=== PATIENT | female | born 1975 | race Caucasian/White ===

== ENCOUNTER 2017-07-19 11:29 | Emergency (ER) | payer BC ==
[2017-07-19] MEDS ORDERED: SUCCINYLCHOLINE CHLORIDE 20 MG/ML 10 ML VIAL IV ONE (11:32)
[2017-07-19] MEDS ORDERED: ETOMIDATE 2 MG/ML 20 ML VIAL IV ONE (11:32)
[2017-07-19] MEDS ORDERED: SODIUM CHLORIDE 0.9% 1000ML 1,000 ML IV STA (11:38)
[2017-07-19] MEDS ORDERED: LORAZEPAM 2 MG/ML 1 ML VIAL IV STA (11:38)
[2017-07-19 11:55] LABS: HEMATOCRIT 37.2 % (37-47); HEMOGLOBIN 12.5 g/dL (12.0-16.0); MEAN CELL VOLUME 92.5 fL (80-100); MEAN CORPUSCULAR HEMOGLOBIN 31.1 pg (25-34); MEAN CORPUSCULAR HGB CONC 33.6 g/dl (32-36); MEAN PLATELET VOLUME 10.4 fL (7.4-10.4); PLATELET COUNT 354 K/uL (130-400); RED CELL DISTRIBUTION WIDTH CV 13.1 % (11.5-14.5); WHITE BLOOD COUNT 17.67 K/uL (4.8-10.8)
[2017-07-19] MEDS ORDERED: RAPID SEQUENCE INDUCTION BAG ONE (12:01)
--- NOTE | 2017-07-19 12:03 | DIAGNOSTIC IMAGING REPORT ---
CT OF THE HEAD WITHOUT CONTRAST CLINICAL HISTORY: Altered mental status. Fever. Sepsis. COMPARISON STUDY: None. CT DOSE: 537.48 mGy.cm TECHNIQUE: Helical axial images of the head were obtained without IV contrast. Automated exposure control was utilized for the study. A dose lowering technique was utilized adhering to the principles of ALARA. FINDINGS: Note is made of extensive acute subarachnoid hemorrhage. The subarachnoid hemorrhage is noted within the basilar cisterns, both sylvian fissures, left greater than right, as well as scattered foci overlying the convexities. The amount of blood is greatest within the interpeduncular cistern and left sylvian fissure. There is a small amount of intraventricular hemorrhage, most evident within the occipital horn of the right lateral ventricle. There is no evidence for hydrocephalus. Boykin-white differentiation is maintained. There is no calvarial fracture. IMPRESSION: Extensive acute subarachnoid hemorrhage and small amount of intraventricular hemorrhage. The finding are highly suggestive of a ruptured intracranial aneurysm. No aneurysm identified on this unenhanced exam but considerations include a basilar tip or left MCA aneurysm. A CTA of the head and urgent neurosurgical consultation are recommended. Findings discussed with Dr. Johnson at time of dictation. Electronically signed by: Jamal Wallace M.D. 07/19/2017 12:02 PM Dictated Date/Time: 07/19/2017 11:57 AM
[2017-07-19 12:05] LABS: INR 0.9 (0.9-1.1); PTT PATIENT 28.2 SECONDS (21.0-31.0)
[2017-07-19] MEDS ORDERED: PROPOFOL IV EMULSION 10 MG/ML 100 ML VIAL IV ONE (12:08)
[2017-07-19 12:12] LABS: BASO % 0.2 %; BASO ABS # 0.04 K/uL (0-0.2); EOS % 0.8 %; EOS ABS # 0.14 K/uL (0-0.5); LYMPH % 34.3 %; LYMPH ABS # 6.06 K/uL (1.2-3.4); MONO % 5.3 %; MONO ABS # 0.94 K/uL (0.11-0.59); NEUT % 58.8 %; NEUT ABS # 10.39 K/uL (1.4-6.5)
[2017-07-19 12:16] LABS: ALBUMIN 3.2 gm/dl (3.4-5.0); BLOOD UREA NITROGEN 11 mg/dl (7-18); CALCIUM 7.7 mg/dl (8.5-10.1); CARBON DIOXIDE 14 mmol/L (21-32); CREATININE 0.93 mg/dl (0.60-1.20); GLUCOSE 189 mg/dl (70-99); LIPASE 130 U/L (73-393); POTASSIUM 3.7 mmol/L (3.5-5.1); SODIUM 139 mmol/L (136-145)
--- NOTE | 2017-07-19 12:18 | DIAGNOSTIC IMAGING REPORT ---
CHEST ONE VIEW PORTABLE CLINICAL HISTORY: Evaluate Fever/Sepsis COMPARISON STUDY: None. FINDINGS: Tip of endotracheal tube projects 3.6 cm above the mihir. There is no pneumothorax or pleural effusion. Pulmonary vascularity is normal. Lung volumes are mildly diminished. No consolidation is identified. Cardiac size is within normal limits. IMPRESSION: 1. Tip of endotracheal tube 3.6 cm above the mihir. 2. No acute cardiopulmonary findings. Electronically signed by: Jamal Wallace M.D. 07/19/2017 12:17 PM Dictated Date/Time: 07/19/2017 12:16 PM
[2017-07-19 12:33] LABS: ALKALINE PHOSPHATASE 65 U/L (45-117); ALT/SGPT 15 U/L (12-78); AST/SGOT 16 U/L (15-37); CKMB 1.3 ng/ml (0.5-3.6); TOTAL PROTEIN 6.4 gm/dl (6.4-8.2)
[2017-07-19] MEDS ORDERED: LEVETIRACTAM 1000 MG in DEXTROSE 5% 100ML IV ONE (12:45)
[2017-07-19 13:36] VITALS: BP 137/72; PULSE 109; O2SAT 100
--- NOTE | 2017-07-19 13:53 | EMERGENCY ROOM VISIT NOTE ---
History Report prepared by Sharmin: Johnathan Taylor Under the Supervision of: Dr. Inocencio Johnson D.O. First contact with patient: 11:33 Chief Complaint: UNRESPONSIVE History of Present Illness The patient is a 40 year old female who presents to the Emergency Room by EMS for evaluation of constant altered mental status beginning shortly prior to arrival. EMS states that they were called when the patient was found unresponsive by her friend in the bathroom at [facility]. They state that she would not respond to sternal rub initially. They state that the patient suddenly became combative and confused while being assessed. EMS states that the patient was given two doses of Ativan en route. They note that her blood sugar was 135. They state that the patient has been unresponsive but moaning since receiving the Ativan. Per friend, the patient has no history of similar symptoms. She denies any known drug use. She notes that the patient was at a concert yesterday. The patients friend states that she saw the patients foot slide into her stall while both going to the bathroom, and went to investigate. She states that she found the patient slumped against the side of the stall. She states that the patient was snoring, but denies seeing any seizure-like activity. The patients friend states that the patient was complaining of diarrhea today, but otherwise had no complaints. She states that the patient was concerned she may have a hemorrhoid as well. The patient has a history of IBS and constipation. HPI limited secondary to altered mental status. Source of History: patient History Limited By: AMS Onset: Shortly prior to arrival Quality: other (altered mental status) Timing: constant Associated Symptoms: + diarrhea Note: Negative: seizure-like activity. Review of Systems ROS limited secondary to altered mental status. Past Medical & Surgical Medical Problems: (1) Constipation (2) IBS (irritable bowel syndrome) Family History No pertinent family history stated. Social History Marital Status: Housing Status: lives with family Current/Historical Medications Unable to Obtain Active Prescriptions or Reported Meds Physical Exam Vital Signs Date Time Temp Pulse Resp B/P (MAP) Pulse Ox O2 Delivery O2 Flow Rate FiO2 07/19/17 13:36 109 16 137/72 100 Mechanical Ventilator 50 07/19/17 12:21 60 07/19/17 12:21 114 16 122/79 100 Mechanical Ventilator 60 07/19/17 11:47 107 07/19/17 11:37 130 20 108/80 98 Room Air Physical Exam CONSTITUTIONAL/VITAL SIGNS: Reviewed / noted above. GENERAL: Non-toxic in appearance. INTEGUMENTARY: Warm, dry, and [place]. HEAD: Normocephalic. EYES: without scleral icterus or trauma. Pupils are dilated but reactive to light. ENT/OROPHARYNX: clear and moist. LYMPHADENOPATHY/NECK: Is supple without lymphadenopathy or meningismus. RESPIRATORY: Lungs clear and equal. CARDIOVASCULAR: Regular rate and rhythm. GI/ABDOMEN: Soft and nontender. No organomegaly or pulsatile mass. No rebound or guarding. Normal bowel sounds. EXTREMITIES: Warm and well perfused. BACK: No CVA tenderness. NEUROLOGICAL: Non-purposeful movements of the upper extremities. May withdrawal to pain. Screams at times. Negative upgoing toes with Babinski test. PSYCHIATRIC: normal affect. MUSCULOSKELETAL: Normally developed with good muscle tone. Medical Decision & Procedures ER Provider Diagnostic Interpretation: Radiology results as stated below per my review and radiologist interpretation: CT OF THE HEAD WITHOUT CONTRAST FINDINGS: Note is made of extensive acute subarachnoid hemorrhage. The subarachnoid hemorrhage is noted within the basilar cisterns, both sylvian fissures, left greater than right, as well as scattered foci overlying the convexities. The amount of blood is greatest within the interpeduncular cistern and left sylvian fissure. There is a small amount of intraventricular hemorrhage, most evident within the occipital horn of the right lateral ventricle. There is no evidence for hydrocephalus. Boykin-white differentiation is maintained. There is no calvarial fracture. IMPRESSION: Extensive acute subarachnoid hemorrhage and small amount of intraventricular hemorrhage. The finding are highly suggestive of a ruptured intracranial aneurysm. No aneurysm identified on this unenhanced exam but considerations include a basilar tip or left MCA aneurysm. A CTA of the head and urgent neurosurgical consultation are recommended. Findings discussed with Dr. Johnson at time of dictation. Electronically signed by: Jamal Wallace M.D. 07/19/2017 12:02 PM CHEST ONE VIEW PORTABLE FINDINGS: Tip of endotracheal tube projects 3.6 cm above the mihir. There is no pneumothorax or pleural effusion. Pulmonary vascularity is normal. Lung volumes are mildly diminished. No consolidation is identified. Cardiac size is within normal limits. IMPRESSION: 1. Tip of endotracheal tube 3.6 cm above the mihir. 2. No acute cardiopulmonary findings. Electronically signed by: Jamal Wallace M.D. 07/19/2017 12:17 PM Laboratory Results 07/19/17 11:45 Red Blood Count 4.02, Mean Corpuscular Volume 92.5, Mean Corpuscular Hemoglobin 31.1, Mean Corpuscular Hemoglobin Concent 33.6, Mean Platelet Volume 10.4, Neutrophils (%) (Auto) 58.8, Lymphocytes (%) (Auto) 34.3, Monocytes (%) (Auto) 5.3, Eosinophils (%) (Auto) 0.8, Basophils (%) (Auto) 0.2, Neutrophils # (Auto) 10.39, Lymphocytes # (Auto) 6.06, Monocytes # (Auto) 0.94, Eosinophils # (Auto) 0.14, Basophils # (Auto) 0.04 07/19/17 11:45 Test 07/19/17 11:38 07/19/17 11:45 07/19/17 12:16 07/19/17 12:28 White Blood Count 17.67 K/uL (4.8-10.8) Red Blood Count 4.02 M/uL (4.2-5.4) Hemoglobin 12.5 g/dL (12.0-16.0) Hematocrit 37.2 % (37-47) Mean Corpuscular Volume 92.5 fL (80-100) Mean Corpuscular Hemoglobin 31.1 pg (25-34) Mean Corpuscular Hemoglobin Concent 33.6 g/dl (32-36) Platelet Count 354 K/uL (130-400) Mean Platelet Volume 10.4 fL (7.4-10.4) Neutrophils (%) (Auto) 58.8 % Lymphocytes (%) (Auto) 34.3 % Monocytes (%) (Auto) 5.3 % Eosinophils (%) (Auto) 0.8 % Basophils (%) (Auto) 0.2 % Neutrophils # (Auto) 10.39 K/uL (1.4-6.5) Lymphocytes # (Auto) 6.06 K/uL (1.2-3.4) Monocytes # (Auto) 0.94 K/uL (0.11-0.59) Eosinophils # (Auto) 0.14 K/uL (0-0.5) Basophils # (Auto) 0.04 K/uL (0-0.2) RDW Standard Deviation 44.0 fL (36.4-46.3) RDW Coefficient of Variation 13.1 % (11.5-14.5) Immature Granulocyte % (Auto) 0.6 % Immature Granulocyte # (Auto) 0.10 K/uL (0.00-0.02) Large Platelets 1+ Prothrombin Time 9.9 SECONDS (9.0-12.0) Prothromb Time International Ratio 0.9 (0.9-1.1) Activated Partial Thromboplast Time 28.2 SECONDS (21.0-31.0) Partial Thromboplastin Ratio 1.1 Anion Gap 15.0 mmol/L (3-11) Estimated GFR () 88.5 Estimated GFR (Non- 76.3 BUN/Creatinine Ratio 11.5 (10-20) Calcium Level 7.7 mg/dl (8.5-10.1) Magnesium Level 1.8 mg/dl (1.8-2.4) Total Bilirubin 0.4 mg/dl (0.2-1) Direct Bilirubin 0.1 mg/dl (0-0.2) Aspartate Amino Transf (AST/SGOT) 16 U/L (15-37) Alanine Aminotransferase (ALT/SGPT) 15 U/L (12-78) Alkaline Phosphatase 65 U/L (45-117) Total Creatine Kinase 90 U/L (26-192) Creatine Kinase MB 1.3 ng/ml (0.5-3.6) Creatine Kinase MB Ratio 1.4 (0-3.0) Troponin I 0.299 ng/ml (0-0.045) Total Protein 6.4 gm/dl (6.4-8.2) Albumin 3.2 gm/dl (3.4-5.0) Lipase 130 U/L (73-393) Thyroid Stimulating Hormone (TSH) 13.100 uIu/ml (0.300-4.500) Human Chorionic Gonadotropin, Qual NEG (NEG) Salicylates Level < 1.7 mg/dl (2.8-20) Acetaminophen Level < 2 ug/ml (10-30) Arterial Blood pH 7.26 (7.35-7.45) Arterial Blood Partial Pressure CO2 35 mmHg (35-46) Arterial Blood Partial Pressure O2 231 mm/Hg (80-95) Arterial Blood HCO3 15 mmol/L (19-24) Arterial Blood Oxygen Saturation 100.0 % (90-95) Arterial Blood Base Excess -10.6 mEq/L (-9-1.8) Arterial Blood Gas Delivery 60% Vega Test POS (POS) Urine Color YELLOW Urine Appearance CLEAR (CLEAR) Urine pH 5.0 (4.5-7.5) Urine Specific [place] 1.015 (1.000-1.030) Urine Protein NEG (NEG) Urine Glucose (UA) 1+ (NEG) Urine Ketones 1+ (NEG) Urine Occult Blood TRACE (NEG) Urine Nitrite NEG (NEG) Urine Bilirubin NEG (NEG) Urine Urobilinogen NEG (NEG) Urine Leukocyte Esterase NEG (NEG) Urine WBC (Auto) 0 /hpf (0-5) Urine RBC (Auto) 0-4 /hpf (0-4) Urine Hyaline Casts (Auto) 0 /lpf (0-5) Urine Epithelial Cells (Auto) 0-5 /lpf (0-5) Urine Bacteria (Auto) NEG (NEG) Urine Opiates Screen NEG (NEG) Urine Methadone, Qualitative NEG (NEG) Urine Barbiturates NEG (NEG) Urine Phencyclidine (PCP) Level NEG (NEG) Ur Amphetamine/Methamphetamine NEG (NEG) MDMA (Ecstasy) Screen NEG (NEG) Urine Benzodiazepines Screen NEG (NEG) Urine Cocaine Metabolite NEG (NEG) Urine Marijuana (THC) NEG (NEG) Test 07/19/17 12:45 07/19/17 12:46 Ethyl Alcohol mg/dL < 3.0 mg/dl (0-3) Ammonia umol/L (11-32) Laboratory results as stated above per my review. Medications Administered Medications (Trade) Dose Ordered Sig/Gibran Route Start Time Stop Time Status Last Admin Dose Admin Sodium Chloride 1,000 ml @ 999 mls/hr Q1H1M STAT IV 07/19/17 11:38 07/19/17 12:38 DC 07/19/17 12:22 999 MLS/HR Lorazepam (Ativan Inj) 2 mg NOW STAT IV 07/19/17 11:38 07/19/17 11:40 DC 07/19/17 11:44 2 MG Propofol (Diprivan Iv Emulsion 100ml Vial) 1 dose STK-MED ONCE IV 07/19/17 12:08 07/19/17 12:09 DC 07/19/17 12:28 1 DOSE Levetiracetam 1000 mg/Dextrose 110 ml @ 440 mls/hr NOW ONCE IV 07/19/17 12:45 07/19/17 12:59 DC 07/19/17 13:04 440 MLS/HR Procedure Endotracheal Intubation Indication unresponsive. The patient was on 100% oxygen via NRB prior to the procedure. Suction, airway equipment, RSI drugs, respiratory equipment, and appropriate personnel were prepared prior to the initiation of the procedure. A time out was taken. Induction was performed with Etomidate and Succinyl Choline. After observing the clinical benefit of the medications, the airway was easily visualized utilizing a #3 blade GlideScope. A 7.5 size ETT tube was placed atraumatically to 21 cm at the lip using standard technique. The cuff inflated without signs of malfunction. There were bilateral breath sounds, positive colormetric change , no gastric sounds, a good capnography waveform, and post procedure pulse oximetry was 100%. Post intubation sedation and paralysis was administered using Propofol. There were no complications. ECG Per My Interpretation Indication: altered mental status Rate (beats per minute): 85 Rhythm: normal sinus Findings: ST depression (Anterolateral), no ectopy (No PVCs) ED Course 1130: Previous medical records were reviewed. The patient was evaluated in room B1. A complete history and physical examination was performed. 1155: I intubated the patient. See the procedure note for details. 1138: Ordered Ativan Inj 2 mg IV, Sodium Chloride 1000 ml @ 999 mls/hr IV. 1208: Ordered Propofol 100 mL Vial 1 dose IV. 1243: I spoke with the patient's over the phone and updated him on the patient's situation. 1245: Ordered Levetiracetam 1000 mg/Dextrose 110 mL @ 440 mL/hr IV. 1323: On reevaluation, the patient is hemodynamically stable. [facility] has arrived with helicopter to transfer the patient. I discussed the results and findings with her family. They verbalized agreement of the treatment plan. I spoke with Dr. Morton of [facility]. The patient will be transferred to the [facility] ICU by air. Medical Decision Differential includes acute cardiac dysrhythmia, microinfarction, CVA, TIA, dehydration, anemia, electrolyte disturbance, seizure, trauma, intracranial bleeding, acute vascular catastrophe, thoracic aortic dissection, PE, abdominal aortic aneurysm rupture, infection, hypoglycemia, overdose, trauma. This is a 41-year-old female who presents to the ED with a chief complaint of unresponsiveness. The patient was visiting the area with a friend. She is from [place]. The patient went to the [facility] and was in the bathroom stall. The patient's friend was in the stall next to her. The patient's friend noticed that her foot came over onto her side of the stall and she attempted talking to her without response. When EMS arrived, the patient was unresponsive but screaming and thrashing about but would not respond purposefully. Prehospital blood sugar was normal. A 12-lead EKG that they sent revealed some ST depressions. The patient was given 2 mg of IV Ativan followed by 2 more milligrams of IV Ativan because she was unable to be controlled. The patient arrived here and she was more sedate but was still moving her arms. 2 additional milligrams of IV Ativan was given and the patient was sent for CT scan. CT scan revealed a subarachnoid hemorrhage. She was subsequently brought back to the ED bed B1 and intubated using a glide scope as noted above. There was no hypoxia during intubation. Etomidate and succinylcholine were used for the intubation followed by propofol drip. The patient was placed on the ventilator. Blood work reveals an elevated white blood cell count. Troponin is slightly elevated. EKG showed a sinus rhythm with some ST depressions in the inferolateral leads. Tox screen was negative. test was negative. ABG reveals what appears to be a metabolic acidosis. I spoke with Dr. Morton who accepted the patient in transfer to the neurosurgical service. The patient was transported by helicopter. He did request that one gram of Keppra be given. This was administered. The patient was on a propofol drip at the time of transfer. Medication Reconcilliation Current Medication List: was personally reviewed by me Blood Pressure Screening Patient's blood pressure: Normal blood pressure Blood pressure disposition: Did not require urgent referral Consults Time Called: 1210 Consulting Physician: [facility] Returned Call: [phone] Discussed the patient's case. [facility] cannot accept the patient due to lack of capabilities. Additional Consults: Time Called: 1225 Consulted Physician: Dr. Selene Miller [facility] Returned Call: [phone] Additional Comments: Discussed the patient's case. The patient will be transferred to the [facility] by air. Impression Primary Impression: Subarachnoid hemorrhage Additional Impression: Unresponsiveness Critical Care I have personally spent greater than 75 minutes of critical care time in the direct management of this patient. This includes bedside care, interpretation of diagnostic studies, and testing, discussion with consultants, patient, and family members, and other required patient management activities. This 75 minutes is in excess of all separately billable procedures. Scribe Attestation The scribe's documentation has been prepared under my direction and personally reviewed by me in its entirety. I confirm that the note above accurately reflects all work, treatment, procedures, and medical decision making performed by me. Departure Information Dispostion Transfer Acute Care Facility ([facility] by air) Prescriptions Unable to Obtain Active Prescriptions or Reported Meds Patient Instructions My [facility] Health Problem Qualifiers
== END 2017-07-19 13:38 | disposition short-term general hospital (02) ==
LOC: C.EDB 11:31 → EDBD 11:31 → C.EDB 13:38
DX: I60.7 Nontraumatic subarachnoid hemorrhage from unspecified intracranial artery (principal); R40.20 Unspecified coma; K58.0 Irritable bowel syndrome with diarrhea